=== PATIENT | female | born 1980 | race African-American/Black ===

== ENCOUNTER 2022-06-19 16:10 | Emergency (ER) | payer SELFPAY ==
[2022-06-19 16:32] VITALS: BP 130/87; PULSE 87; RESP 18; TEMP 98.4; BMI 52.4
[2022-06-19] MEDS ORDERED: ASPIRIN 81 MG CHEWABLE TABLETS PO ONE (17:46)
[2022-06-19] MEDS ORDERED: ASPIRIN 81 MG CHEWABLE TABLETS ONE (17:50)
[2022-06-19 18:17] LABS: BASO % 1.1 % (0-2.0); EOS % 1.5 % (0-4.5); HEMATOCRIT 39.7 % (32.4-45.2); HEMOGLOBIN 12.6 GM/dL (10.7-15.3); LYMPH % 21.6 % (8-40); MCH 25.4 pg (25.7-33.7); MCHC 31.8 g/dl (32.0-36.0); MEAN CELL VOLUME 79.9 fl (80-96); MEAN PLT VOLUME 8.7 fl (7.5-11.1); MONO % 11.9 % (3.8-10.2); NEUT % 63.9 % (42.8-82.8); PLATELET COUNT 357 10^3/uL (134-434); RBC 4.97 M/mm3 (3.60-5.2); RDW 15.5 % (11.6-15.6); WHITE BLOOD COUNT 8.8 K/mm3 (4.0-10.0)
[2022-06-19 18:23] LABS: INR 1.07 (0.83-1.09); PROTHROMBIN TIME (PATIENT) 12.3 SEC (9.7-13.0)
[2022-06-19 18:26] LABS: ACTIVATED PTT 31.8 SECONDS (25.2-36.5)
[2022-06-19 18:40] LABS: CALCIUM 8.7 mg/dL (8.5-10.1)
[2022-06-19 18:41] LABS: ALBUMIN 3.4 g/dl (3.4-5.0); BLOOD UREA NITROGEN 15.8 mg/dL (7-18); MAGNESIUM 2.2 mg/dL (1.8-2.4)
[2022-06-19 18:44] LABS: BILIRUBIN,TOTAL 0.3 mg/dL (0.2-1); CREATININE 0.8 mg/dL (0.55-1.3); TOT PROT 7.8 g/dl (6.4-8.2)
== END 2022-06-19 20:21 | disposition home or self-care (01) ==
LOC: JER 16:10
DX: R00.2 Palpitations (principal)
CPT/HCPCS: 36415; 71046-TC-FY; 80053; 83735; 84439; 84443; 84484; 84703; 85025; 85379; 85610; 85730; 93005; 93010; 99285-25

== ENCOUNTER 2023-11-15 03:02 | Emergency (ER) | payer BC ==
[2023-11-15 03:19] VITALS: BP 131/80; PULSE 78; RESP 20; TEMP 97.6; BMI 48.8
[2023-11-15] MEDS ORDERED: ACETAMINOPHEN 325 MG TABLET (FP) ONE (03:22)
[2023-11-15] MEDS: ACETAMINOPHEN 500 MG TABLET (FP) PO ONE (03:27)
[2023-11-15] MEDS: IBUPROFEN 400 MG TABLET (FP) PO ONE (03:28)
[2023-11-15] MEDS ORDERED: IBUPROFEN 400 MG TABLET (FP) PO ONE (03:29)
[2023-11-15 03:58] LABS: BASO % 0.7 % (0-2.0); EOS % 0.9 % (0-4.5); HEMATOCRIT 41.7 % (32.4-45.2); HEMOGLOBIN 13.7 GM/dL (10.7-15.3); LYMPH % 25.4 % (8-40); MCH 26.6 pg (25.7-33.7); MCHC 32.7 g/dl (32.0-36.0); MEAN CELL VOLUME 81.4 fl (80-96); MEAN PLT VOLUME 8.7 fl (7.5-11.1); MONO % 4.6 % (3.8-10.2); NEUT % 68.4 % (42.8-82.8); PLATELET COUNT 348 10^3/uL (134-434); RBC 5.12 M/mm3 (3.60-5.2); RDW 15.3 % (11.6-15.6); WHITE BLOOD COUNT 11.8 K/mm3 (4.0-10.0)
[2023-11-15 04:28] LABS: POTASSIUM 4.4 mmol/L (3.5-5.1)
[2023-11-15 04:31] LABS: CALCIUM 9.2 mg/dL (8.5-10.1)
[2023-11-15 04:32] LABS: ALBUMIN 3.4 g/dl (3.4-5.0); BLOOD UREA NITROGEN 23.2 mg/dL (7-18)
[2023-11-15 04:35] LABS: CREATININE 0.8 mg/dL (0.55-1.3)
[2023-11-15 04:36] LABS: BILIRUBIN,TOTAL 0.4 mg/dL (0.2-1); TOT PROT 7.7 g/dl (6.4-8.2)
[2023-11-15] MEDS: oxyCODONE HCL 5 MG TABLET PO ONE (04:44)
[2023-11-15] MEDS: SIMETHICONE 80 MG TAB.CHEW (FP) PO PRN (04:44)
[2023-11-15] MEDS ORDERED: oxyCODONE HCL 5 MG TABLET ONE (04:46)
== END 2023-11-15 05:27 | disposition home or self-care (01) ==
LOC: JER 03:02
DX: R10.31 Right lower quadrant pain (principal); N83.201 Unspecified ovarian cyst, right side
CPT/HCPCS: 36415; 76830-TC; 80053; 83690; 84703; 85025; 99284-25